=== PATIENT | female | born 1995 | race Caucasian/White ===

== ENCOUNTER 2018-08-08 09:18 | Emergency (ER) | payer MEDICAID, OTHER ==
[2018-08-08 09:24] VITALS: BP 121/79
[2018-08-08] MEDS ORDERED: FLUORESCEIN SODIUM 1 MG STRIP OP ONE (09:29)
[2018-08-08] MEDS ORDERED: PROPARACAINE 0.5% 15 ML OPHT DROP ONE (09:29)
--- NOTE | 2018-08-08 09:30 | EDPHY ---
H & P Stated Complaint: right eye redness and teary for 2 days. Source: Patient Exam Limitations: No limitations - Personal History Current Tetanus Diphtheria and Acellular Pertussis (TDAP): Unsure - Medical/Surgical History Hx Asthma: No Hx Chronic Respiratory Disease: No Hx Diabetes: No Hx Cardiac Disease: No Hx Renal Disease: No Hx Cirrhosis: No Hx Alcoholism: No Hx HIV/AIDS: No Hx Splenectomy or Spleen Trauma: No Other PMH: Heart murmer. - Social History Smoking Status: Never smoked Time Seen by Provider: 08/08/18 09:26 HPI/ROS: HPI: This is a 22-year-old female who presents with Chief Complaint: right eye redness and teary for 2 days. Location: Right eye greater than left eye Quality: Redness and tearing Duration: 2 days Signs and Symptoms: no fever, no nausea, no vomiting, no photophobia, no noise sensitivity, no neck stiffness, no ear pain, no tinnitus, no nasal congestion, no sinus pressure, no weakness, no radiation, no aura, no eyelash matting, no eye swelling, no eye pain, no visual changes, no vision loss Timing: Gradual onset Severity: [id number] Context: Patient reports that she woke up 2 days ago with right eye redness and clear tearing. She complains of it being itchy in nature. She took Benadryl last night with mild improvement in the symptoms. 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 Does not wear contact lenses or corrective lenses. Last eye exam was approximately 2 months ago. Denies eye pain, vision loss, visual blurriness, fever, facial swelling, facial redness. Denies sneezing, nasal congestion, runny nose. Modifying Factors: Benadryl with mild transient relief of symptoms Comment: ROS: A comprehensive 10 system review of systems is otherwise negative aside from elements mentioned in the history of present illness. MEDICAL/SURGICAL/SOCIAL HISTORY: Medical history: Generally healthy. Does not take any regular medications. Surgical history: Denies Social history: Morning raised in [place]. Employed as a manager hair in the food industry. Family history noncontributory. General appearance: Young adult white female, awake and alert, nontoxic appearance, polite and cooperative Visual Acuity: noted from Nurse's notes. Pupils: equal round and reactive to light. EOMI Lids: no edema or swelling Skin: no proptosis, no periorbital erythema or swelling, no vesicles Conjunctivae: Bilaterally right greater than left mildly injected, no discharge Cornea: exam with fluorescein shows no uptake Neuro: Cranial nerves 2-12 grossly intact. (Sisi Bellamy) Constitutional: Initial Vital Signs Temperature (C) 36.8 C 08/08/18 09:20 Heart Rate 101 H 08/08/18 09:20 Respiratory Rate 16 08/08/18 09:20 Blood Pressure 121/79 H 08/08/18 09:20 O2 Sat (%) 95 08/08/18 09:20 O2 Delivery Mode Room Air Allergies/Adverse Reactions: No Known Allergies Allergy (Unverified 08/08/18 09:22) Home Medications: Medication Instructions Recorded Olopatadine 0.1% [Patanol 0.1%] 1 - 2 drops OP Q12 7 Days #1 08/08/18 opht.btl Polymyxin B Sulfate/Tmp [Polytrim 1 - 2 drops EACHEYE Q6 7 Days #1 08/08/18 Opht Drops (*)] bottle Medical Decision Making ED Course/Re-evaluation: Vital signs reviewed and show mild tachycardia. This appears to be conjunctivitis- allergic versus viral in nature. Will start on prophylactic antibiotic drops Polytrim and given Patanol eyedrops to decrease inflammation and redness. No signs of periorbital cellulitis, facial cellulitis Referral to Ophthalmology This patient was seen under the supervision of my secondary supervising physician. I evaluated and cared for this patient independently. (Sisi Bellamy) I did not see this patient while she was in the emergency department. However her care was discussed with the PA while the patient was in the department. I agree with treatment plan and management (Malcolm Haney) Differential Diagnosis: Differential diagnosis includes but is not limited to viral conjunctivitis, bacterial conjunctivitis, atopic conjunctivitis, uveitis, iritis, corneal region. (Sisi Bellamy) Departure - Departure Disposition: Home, Routine, Self-Care Clinical Impression: Acute conjunctivitis, right eye Qualifiers: Acute conjunctivitis type: unspecified Qualified Code(s): H10.31 - Unspecified acute conjunctivitis, right eye Condition: Good Instructions: Conjunctivitis (ED) Additional Instructions: Apply Polytrim 1-2 drops into your right eye every 6 hr while awake x 7 days. Apply Patanol 1 drop every 12 hr while awake x 5-7 days. Please avoid using your hands to touch your eyes. Wash your hands frequently with mild soap and water. Apply cool compresses for 15-20 minutes at a time several times per day for the next 1-2 days. Take [id number] antihistamine like Claritin/Macy/Zyrtec daily as needed for allergies. Follow up with ophthalmology in 5-7 days if no improvement in symptoms. Eye Complaint: Return to the Emergency Department for any increase in eye pain, redness, swelling, discharge or any worsening of your vision. Referrals: JO HELMS [Non Staff Provider (MD)] - As per Instructions Stand Alone Forms: Work Excuse Prescriptions: Olopatadine 0.1% [Patanol 0.1%] 1 - 2 drops OP Q12 7 Days #1 opht.btl Polymyxin B Sulfate/Tmp [Polytrim Opht Drops (*)] 1 - 2 drops EACHEYE Q6 7 Days #1 bottle
== END 2018-08-08 09:43 | disposition home or self-care (01) ==
DX: H10.31 Unspecified acute conjunctivitis, right eye (principal)